=== PATIENT | female | born 1995 | race Caucasian/White ===

== ENCOUNTER 2018-06-13 19:40 | Inpatient (IN) ==
[2018-06-13 20:50] LABS: Basophils # (auto) 0.02 K/uL (0-0.2); Basophils % (auto) 0.3 %; Eosinophils % (auto) 1.5 %; Hematocrit (blood only) 39.2 % (37-47); Hemoglobin 13.1 g/dL (12.0-16.0); Immature Granulocytes # (auto) 0.02 K/uL (0.00-0.02); Immature Granulocytes % (auto) 0.3 %; Lymphocytes # (auto) 2.59 K/uL (1.2-3.4); Lymphocytes % (auto) 39.1 %; Mean Corpuscular Hgb Conc 33.4 g/dL (32-36); Mean Corpuscular Volume 84.8 fL (80-100); Mean Platelet Volume 9.4 fL (7.4-10.4); Monocytes # (auto) 0.54 K/uL (0.11-0.59); Monocytes % (auto) 8.2 %; Neutrophils # (auto) 3.35 K/uL (1.4-6.5); Neutrophils % (auto) 50.6 %; Platelet Count 377 K/uL (130-400); RDW Coefficient of Variation 13.4 % (11.5-14.5); RDW Standard Deviation 41.4 fL (36.4-46.3); Red Blood Count 4.62 M/uL (4.2-5.4); White Blood Count 6.62 K/uL (4.8-10.8)
[2018-06-13 20:54] LABS: Appearance Urine Cloudy (Clear); Bacteria Urine Automated 1+ (Negative); Bilirubin Urine Negative (Negative); Color Urine Yellow; Epithelial Cell Urine Auto >30 /lpf (0-5); Glucose Urine UA Negative (Negative); Ketones Urine Negative (Negative); Leukocyte Esterase Urine Negative (Negative); Nitrite Urine Negative (Negative); Protein Urine Negative (Negative); Specific Gravity Urine 1.015 (1.000-1.030); Urobilinogen Urine Negative (Negative); pH Urine 7.5 (4.5-7.5)
[2018-06-13 21:01] LABS: Pregnancy Test, Serum Negative (Negative)
--- NOTE | 2018-06-13 21:01 | Emergency Department Note ---
Entered by Jennifer Cordero acting as a scribe for Hai Carrillo MD History of Present Illness General Chief complaint: Mental Health Evaluation Stated complaint: SUICIDAL THOUGHTS Time Seen by Provider: 06/13/18 20:05 Source: patient Limitations: no limitations History of Present Illness Provider complaint: thoughts of overdosing Onset (ago): year(s) Location: head Associated symptoms: + other (+not sleeping); no loss of appetite The patient is a 22 year old female who presents to the Emergency Room with complaints of thoughts of overdosing. The patient states that she was going to mix her antidepressants with alcohol. The patient states that her depression has been building up for years but states that it has never been this bad. The patient states that she is eating normally but states that she is not getting a lot of sleep. The patient states that her grades are poor but denies having any relationship issues. The patient states that her basic health is good. The patient denies ever being hospitalized for her depression before. The patient states she has cut herself before and states the last time she cut herself was several months ago. The patient states that she came to the hospital on her own for help. Allergies Allergy/AdvReac Type Severity Reaction Status Date / Time No Known Allergies Allergy Unverified 01/28/16 12:23 Past Med/Surg History Medical History Depression No significant active problems No significant family history No significant past surgical history Social History Feels Safe at Home: Yes Smoking Status: Never smoker Review of Systems See HPI for pertinent positives & negatives. and A total of 10 systems reviewed and were otherwise negative Physical Exam Vital Signs Vital Signs - 24 hr 06/13/18 19:52 Temperature 36.8 C Temperature Source Oral Sepsis Recent Fever Within 48 Hours No Sepsis Action Taken by Nursing No Action Required Pulse Rate 98 H Respiratory Rate 18 Respiratory Effort / Characteristics Non-Labored Spontaneous Respiratory Depth Normal Blood Pressure 151/107 H Blood Pressure Mean 121 Pulse Oximetry 96 Oxygen Delivery Method Room Air GENERAL: Patient is in no acute distress, tearful. HEENT: No acute trauma, normocephalic atraumatic, mucous membranes moist, no nasal congestion, no scleral icterus. NECK: No stridor, no adenopathy, no meningismus, trachea is midline. LUNGS: Clear to auscultation bilaterally, no wheeze, no rhonchi, breath sounds equal. HEART: Without murmurs gallops or rubs, regular rate and rhythm. ABDOMEN: Soft, nontender, bowel sounds positive, no hernias, no peritonitis. EXTREMITIES: No cyanosis or edema, full range of motion of all the joints without pain or difficulty, no signs for acute trauma. NEUROLOGIC: Oriented x 3, no acute motor or sensory deficits, no focal weakness. SKIN: No rash, no jaundice, no diaphoresis. PSYCH: Cooperative, voluntary, admits to suicidal ideation with plan to overdose on pills. Course 2007: Past medical records reviewed. The patient was evaluated in room A6, and a complete history and physical examination were performed. 2210: The patient was referred to [address] [place] [address] at [facility] and is voluntary. Administered Medications Discontinued Medications Acetaminophen (Tylenol) 1,000 mg PO NOW STA Stop: 06/13/18 21:34 Last Admin: 06/13/18 21:39 Dose: 1,000 mg Medical Decision Making Differential Diagnosis The patient is a 22 year old female who presents to the ED with thoughts of overdosing. Differential diagnosis includes medication noncompliance, situational depression, suicidality, thyroid disorder, , electrolyte imbalance, drug and alcohol abuse. Medical Records Attestation: I reviewed the patient's medical records. Home Medications Current Medication List: was personally reviewed by me Laboratory Data Attestation: I reviewed the patient's lab results. Result diagrams: 06/13/18 20:35 06/13/18 20:35 Lab Results 06/13/18 06/13/18 06/13/18 Range/Units 20:15 20:15 20:35 WBC 6.62 (4.8-10.8) K/uL RBC 4.62 (4.2-5.4) M/uL Hgb 13.1 (12.0-16.0) g/dL Hct 39.2 (37-47) % MCV 84.8 (80-100) fL MCH 28.4 (25-34) pg MCHC 33.4 (32-36) g/dL RDW Std Deviation 41.4 (36.4-46.3) fL RDW Coeff of Nikki 13.4 (11.5-14.5) % Plt Count 377 (130-400) K/uL MPV 9.4 (7.4-10.4) fL Immature Gran % (Auto) 0.3 % Neut % (Auto) 50.6 % Lymph % (Auto) 39.1 % [place] % (Auto) 8.2 % Eos % (Auto) 1.5 % Baso % (Auto) 0.3 % Immature Gran # (Auto) 0.02 (0.00-0.02) K/uL Neut # (Auto) 3.35 (1.4-6.5) K/uL Lymph # (Auto) 2.59 (1.2-3.4) K/uL [place] # (Auto) 0.54 (0.11-0.59) K/uL Eos # (Auto) 0.10 (0-0.5) K/uL Baso # (Auto) 0.02 (0-0.2) K/uL Sodium (136-145) mmol/L Potassium (3.5-5.1) mmol/L Chloride (98-107) mmol/L Carbon Dioxide (21-32) mmol/L Anion Gap (3-11) BUN (7-18) mg/dl Creatinine (0.6-1.2) mg/dl Est Cr Clr Drug Dosing ml/min Est GFR ( Amer) Est GFR (Non-Af Amer) BUN/Creatinine Ratio (10-20) Glucose (70-99) mg/dl Calcium (8.5-10.1) mg/dl Total Bilirubin (0.2-1) mg/dl AST (15-37) U/L ALT (12-78) U/L Alkaline Phosphatase (45-117) U/L Total Protein (6.4-8.2) gm/dl Albumin (3.4-5.0) gm/dl Globulin (2.5-4.0) gm/dl Albumin/Globulin Ratio (0.9-2) TSH (0.300-4.500) uIu/ml HCG, Qual (Negative) Urine Color Yellow Urine Appearance Cloudy H (Clear) Urine pH 7.5 (4.5-7.5) Ur Specific [place] 1.015 (1.000-1.030) Urine Protein Negative (Negative) Urine Glucose (UA) Negative (Negative) Urine Ketones Negative (Negative) Urine Blood 2+ H (Negative) Urine Nitrite Negative (Negative) Urine Bilirubin Negative (Negative) Urine Urobilinogen Negative (Negative) Ur Leukocyte Esterase Negative (Negative) Urine WBC (Auto) 5-10 H (0-5) /hpf Urine RBC (Auto) 0-4 (0-4) /hpf U Hyaline Cast (Auto) 1-5 (0-5) /lpf U Epithel Cells (Auto) >30 H (0-5) /lpf Urine Bacteria (Auto) 1+ H (Negative) Urine Yeast Not Reportable Salicylates (2.8-20) mg/dl Urine Opiates Screen Neg (Neg) Ur Methadone, Qual Neg (Neg) Acetaminophen (10-30) ug/ml Urine Barbiturates Neg (Neg) Ur Phencyclidine (PCP) Neg (Neg) U Amphetamin/Meth Scrn Neg (Neg) MDMA (Ecstasy) Screen Neg (Neg) U Benzodiazepines Scrn Neg (Neg) Ur Cocaine Metabolite Neg (Neg) U Marijuana (THC) Screen Neg (Neg) Ethyl Alcohol mg/dL (0-3) mg/dl 06/13/18 06/13/18 06/13/18 Range/Units 20:35 20:35 20:35 WBC (4.8-10.8) K/uL RBC (4.2-5.4) M/uL Hgb (12.0-16.0) g/dL Hct (37-47) % MCV (80-100) fL MCH (25-34) pg MCHC (32-36) g/dL RDW Std Deviation (36.4-46.3) fL RDW Coeff of Nikki (11.5-14.5) % Plt Count (130-400) K/uL MPV (7.4-10.4) fL Immature Gran % (Auto) % Neut % (Auto) % Lymph % (Auto) % [place] % (Auto) % Eos % (Auto) % Baso % (Auto) % Immature Gran # (Auto) (0.00-0.02) K/uL Neut # (Auto) (1.4-6.5) K/uL Lymph # (Auto) (1.2-3.4) K/uL [place] # (Auto) (0.11-0.59) K/uL Eos # (Auto) (0-0.5) K/uL Baso # (Auto) (0-0.2) K/uL Sodium 139 (136-145) mmol/L Potassium 3.3 L (3.5-5.1) mmol/L Chloride 107 (98-107) mmol/L Carbon Dioxide 24 (21-32) mmol/L Anion Gap 8.0 (3-11) BUN 8 (7-18) mg/dl Creatinine 0.83 (0.6-1.2) mg/dl Est Cr Clr Drug Dosing 101.2 ml/min Est GFR ( Amer) 117.7 Est GFR (Non-Af Amer) 101.5 BUN/Creatinine Ratio 9.1 L (10-20) Glucose 107 H (70-99) mg/dl Calcium 8.4 L (8.5-10.1) mg/dl Total Bilirubin 0.1 L (0.2-1) mg/dl AST 19 (15-37) U/L ALT 22 (12-78) U/L Alkaline Phosphatase 54 (45-117) U/L Total Protein 7.4 (6.4-8.2) gm/dl Albumin 3.7 (3.4-5.0) gm/dl Globulin 3.7 (2.5-4.0) gm/dl Albumin/Globulin Ratio 1.0 (0.9-2) TSH 0.690 (0.300-4.500) uIu/ml HCG, Qual (Negative) Urine Color Urine Appearance (Clear) Urine pH (4.5-7.5) Ur Specific [place] (1.000-1.030) Urine Protein (Negative) Urine Glucose (UA) (Negative) Urine Ketones (Negative) Urine Blood (Negative) Urine Nitrite (Negative) Urine Bilirubin (Negative) Urine Urobilinogen (Negative) Ur Leukocyte Esterase (Negative) Urine WBC (Auto) (0-5) /hpf Urine RBC (Auto) (0-4) /hpf U Hyaline Cast (Auto) (0-5) /lpf U Epithel Cells (Auto) (0-5) /lpf Urine Bacteria (Auto) (Negative) Urine Yeast Salicylates < 1.7 L (2.8-20) mg/dl Urine Opiates Screen (Neg) Ur Methadone, Qual (Neg) Acetaminophen < 2 L (10-30) ug/ml Urine Barbiturates (Neg) Ur Phencyclidine (PCP) (Neg) U Amphetamin/Meth Scrn (Neg) MDMA (Ecstasy) Screen (Neg) U Benzodiazepines Scrn (Neg) Ur Cocaine Metabolite (Neg) U Marijuana (THC) Screen (Neg) Ethyl Alcohol mg/dL < 3.0 (0-3) mg/dl 06/13/18 Range/Units 20:35 WBC (4.8-10.8) K/uL RBC (4.2-5.4) M/uL Hgb (12.0-16.0) g/dL Hct (37-47) % MCV (80-100) fL MCH (25-34) pg MCHC (32-36) g/dL RDW Std Deviation (36.4-46.3) fL RDW Coeff of Nikki (11.5-14.5) % Plt Count (130-400) K/uL MPV (7.4-10.4) fL Immature Gran % (Auto) % Neut % (Auto) % Lymph % (Auto) % [place] % (Auto) % Eos % (Auto) % Baso % (Auto) % Immature Gran # (Auto) (0.00-0.02) K/uL Neut # (Auto) (1.4-6.5) K/uL Lymph # (Auto) (1.2-3.4) K/uL [place] # (Auto) (0.11-0.59) K/uL Eos # (Auto) (0-0.5) K/uL Baso # (Auto) (0-0.2) K/uL Sodium (136-145) mmol/L Potassium (3.5-5.1) mmol/L Chloride (98-107) mmol/L Carbon Dioxide (21-32) mmol/L Anion Gap (3-11) BUN (7-18) mg/dl Creatinine (0.6-1.2) mg/dl Est Cr Clr Drug Dosing ml/min Est GFR ( Amer) Est GFR (Non-Af Amer) BUN/Creatinine Ratio (10-20) Glucose (70-99) mg/dl Calcium (8.5-10.1) mg/dl Total Bilirubin (0.2-1) mg/dl AST (15-37) U/L ALT (12-78) U/L Alkaline Phosphatase (45-117) U/L Total Protein (6.4-8.2) gm/dl Albumin (3.4-5.0) gm/dl Globulin (2.5-4.0) gm/dl Albumin/Globulin Ratio (0.9-2) TSH (0.300-4.500) uIu/ml HCG, Qual Negative (Negative) Urine Color Urine Appearance (Clear) Urine pH (4.5-7.5) Ur Specific [place] (1.000-1.030) Urine Protein (Negative) Urine Glucose (UA) (Negative) Urine Ketones (Negative) Urine Blood (Negative) Urine Nitrite (Negative) Urine Bilirubin (Negative) Urine Urobilinogen (Negative) Ur Leukocyte Esterase (Negative) Urine WBC (Auto) (0-5) /hpf Urine RBC (Auto) (0-4) /hpf U Hyaline Cast (Auto) (0-5) /lpf U Epithel Cells (Auto) (0-5) /lpf Urine Bacteria (Auto) (Negative) Urine Yeast Salicylates (2.8-20) mg/dl Urine Opiates Screen (Neg) Ur Methadone, Qual (Neg) Acetaminophen (10-30) ug/ml Urine Barbiturates (Neg) Ur Phencyclidine (PCP) (Neg) U Amphetamin/Meth Scrn (Neg) MDMA (Ecstasy) Screen (Neg) U Benzodiazepines Scrn (Neg) Ur Cocaine Metabolite (Neg) U Marijuana (THC) Screen (Neg) Ethyl Alcohol mg/dL (0-3) mg/dl Blood Pressure Blood Pressure Findings: Elevated blood pressure Blood Pressure Disposition: Referred to patients primary care provider MDM Narrative There is no leukocytosis or worrisome anemia. No significant electrolyte abnormality, kidney failure or hepatitis. The patient appears to be in a euthyroid state. testing is negative. Urinalysis shows contamination , no obvious infection. Aspirin, Tylenol and alcohol levels were undetectable. Urine tox was negative. The patient presents with suicidal ideation. She has a plan to overdose on pills and alcohol. She is currently voluntary. Patient was felt medically clear. She was seen by psychiatry case management. A referral has been placed here at our hospital. The patient would be a voluntary admission to the psychiatric floor. The patient did receive a gram of oral Tylenol for pain during her ED stay. She has been very cooperative. She is currently resting comfortably. Impression & Plan Suicidal ideation Discharge Plan Visit Data Chief Complaint: Mental Health Evaluation Stated Complaint: SUICIDAL THOUGHTS ED Provider: Hai Carrillo Discharge Problem: Suicidal ideation Patient Disposition: Still a Patient Condition: Good Forms Stand Alone Forms: My [facility] Referrals Referrals: PCP,NO [Primary Care Provider] - The scribe's documentation has been prepared under my direction and personally reviewed by me in its entirety. I confirm that the note above accurately reflects all work, treatment, procedures, and medical decision making performed by me.
[2018-06-13 21:22] LABS: Albumin Level 3.7 gm/dl (3.4-5.0); BUN Creatinine Ratio 9.1 (10-20); Calcium 8.4 mg/dl (8.5-10.1); Creatinine Clr Calc Pharmacy 101.2 ml/min; Est GFR (African American) 117.7; Est GFR (Non-African American) 101.5; Potassium 3.3 mmol/L (3.5-5.1)
[2018-06-13 21:24] LABS: Amphetamines+Metham, Urine Neg (Neg); Barbiturates, Urine Neg (Neg); Benzodiazepine, Urine Neg (Neg); Cocaine, Urine Neg (Neg); MDMA (Ecstacy), Urine Neg (Neg); Methadone, Urine Neg (Neg); Opiate, Urine Neg (Neg); Phencyclidine, Urine Neg (Neg)
[2018-06-13 21:26] LABS: Acetaminophen < 2 ug/ml (10-30); Salicylate < 1.7 mg/dl (2.8-20)
[2018-06-13 21:32] LABS: Bilirubin,Total 0.1 mg/dl (0.2-1); Globulin 3.7 gm/dl (2.5-4.0); Total Protein 7.4 gm/dl (6.4-8.2)
[2018-06-13] MEDS ORDERED: ACETAMINOPHEN 500 MG TAB PO STA (21:33)
[2018-06-14] MEDS ORDERED: MAGNESIUM HYDROXIDE SUSP 30 ML UDC PO PRN (02:54)
[2018-06-14] MEDS ORDERED: ACETAMINOPHEN 325 MG TAB PO PRN (02:54)
[2018-06-14] MEDS ORDERED: ALUMINUM/MAGNESIUM SUSP 30 ML UDC PO PRN (02:54)
[2018-06-14] MEDS ORDERED: SODIUM CHLORIDE 0.65% NA SOLN 45 ML (OCEAN) PRN (02:54)
[2018-06-14] MEDS ORDERED: BISMUTH SUBSALICYLATE PER ML OMNICELL CHARGE PO PRN (02:54)
--- NOTE | 2018-06-14 11:34 | History & Physical ---
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 She denies acute stressors saying that her depression has been chronic since sixth grade and getting worse of late. She has been on multiple medications in the past but does not remember dosage or duration of the trials and admits that she does not take her medications regularly. At this point I would like to see that we give Lexapro a good shot, will increase the dose to 15 mg, change it to morning where she thinks that she will have a better chance of taking it more regularly. Her UA is positive for bacteria with culture pending and will address this when preliminary is available. She has not been invested in outpatient therapy and we will explore the barriers to this as she is a bright young woman and would benefit from talk therapy. On first glance she is minimizing any acute stressors but I suspect that there are family issues at play that are contributing to her long-standing depressed mood. We will obtain records from her current PCP as to her medication trials, refer for outpatient treatment locally as she believes she wants to continue in school. At this time however the patient requires inpatient mental health treatment due to the severity of her condition and the risk for self-harm if discharged. (1) Major depressive disorder, recurrent severe without psychotic features: 06/14 - Increase Lexapro to 15 mg and move to AM - Obtain OP records from Dr. Hughes as to past med trials - Refer for OP therapy and medication management - Q 15 min checks for safety - Encourage participation in group and individual counseling - Assist the patient to explore healthy coping strategies - Explore barriers to her commitment to therapy - Family meeting if indicated - Safety planning Present on Admission?: Yes (2) Asymptomatic bacteriuria: 06/14 - UA + bacteria, culture pending Inventory Assets Strengths: Intelligence, willingness to engage in treatment Needs: Healthy coping strategies Risk Factors Assessment Male: No : Yes Do You Have Access To A Gun?: No Health Problems: No Mental Health Diagnoses: Yes Substance Use Disorders: No Previous Attempt: No Family History of Suicide: No Previous Psychiatric Hospitalization: No Hopelessness: No Smoker: No Protective Factors Assessment : No Responsible for Young Children: No Employed: Yes Stable Relationships: Yes Supportive Family: Yes Psychiatric History Identifying Data ALTA BARRIOS is a 22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 She is admitted voluntarily. Information is gathered from the patient and considered to be reliable. 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, who brought herself to the emergency department last evening reporting severe depression and thoughts to end her life. She reports that she has felt depressed for "a very long time" and remembers being depressed as early as sixth grade. She indicates that she did not get treatment until about a year and a half ago when she went to [facility] for some therapy. She was there only a brief while before she transferred to a private provider in [facility] but did not feel that was working and so only went to 2 sessions. She then went home to see her PCP, Dr. Nancy Hughes, who has been prescribing antidepressants. She believes that she has had trials of Paxil, Zoloft, Prozac and is currently taking Lexapro 10 mg. She admits that she has trouble taking it and misses it at least several times every week. She has been managing all right in school but her depression has been getting worse recently. Yesterday, she was so depressed that she thought about overdosing on her medications in combination with alcohol. She says "I started to" but then realized that there were " people who rely on me" and that she would hurt if she were to kill herself. She then called in [facility] to have herself brought to the emergency department. The patient reports that she remains depressed and admits to the suicidal thoughts. She says that she has had suicidal thoughts off and on since high school. She reports that her sleep is generally good getting about 6 hours of sleep per night. Her appetite has been undisturbed and weight has been stable. Her energy was okay until recently when she feels more tired but has been able to get to her classes. She reports poor focus and concentration. Anxiety is chronic and has panic attacks when she feels like things are out of her control. She admits to a history of restricting behaviors in order to lose weight but has not engaged in any restricting since last year. She denies ever having purged. She denies symptoms of OCD. She denies any symptoms that would be congruent with a bipolar disorder. She has engaged in self-injurious behaviors, specifically scratching with her nails on her wrists and on her sides. Past Psychiatric History Previous Psych History: Has been to see 2 therapists in the past, one at [facility] and one in the community but did not continue Current Psychiatric Diagnosis: Major Depressive Disorder Outpatient Services: Medications prescribed by PCP Previous Psych Admissions: Denies Do You Have Access To A Gun?: No History of Previous Suicide Attempt: No Describe Attempts in the Past: Denies Past Medication Trials: Paxil Zoloft Prozac Additional Notes: Does not remember dosages or duration of trials Past Head Trauma/Neuro History History of Concussion/Seizure: No Allergies Allergy/AdvReac Type Severity Reaction Status Date / Time No Known Allergies Allergy Verified 06/13/18 22:57 Home Medications Home Medications Medication Instructions Recorded Confirmed Type escitalopram oxalate [Lexapro] 10 mg PO DAILY 06/13/18 06/13/18 History norgestimate-ethinyl estradiol 1 tab PO DAILY 06/13/18 06/13/18 History [[id number]] Family History Family History of: Alcoholism/Drug Abuse (Brother) Alcohol History Hx of Alcohol Use Over the Past 12 Months: Yes ("Socially once per week") AUDIT Total Score: 3 Smoking Use Have You Smoked or Used Tobacco Products in the Last 30 Days: No Smoking Status: Never smoker Substance History Hx of Prescription Med Misuse Over the Past 12 Months: No Hx of Over the Counter Med Misuse Over the Past 12 Months: No Hx of Inhalent Misuse Over the Past 12 Months: No Hx of Organic Substance Use Over the Past 12 Months: No Hx of Illegal Substances/Street Drug Use Over Past 12 Months: No Problems as a Result of Past Substance Use: None Identified Personal History Living Arrangements: APartment (With 4 roommates) Born In: [place] Childhood: Raised by both parents. She does not have a good relationship with her father but admits that her mother tries to be supportive. Father works for [employer], mother just recently employed at a [employer] agency. She has 1 brother. 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[employer]) Marital Status: Single Number Of Children: None Beliefs That Will Affect Care: None Hx Legal Problems: No Hx Traumatic Life Events: Yes Patient History Medical History Depression No significant active problems No significant family history No significant past surgical history Social History Feels Safe at Home: Yes Smoking Status: Never smoker Beliefs That Will Affect Care: None Preferred Language: Malawian Communication Ability: Effective Supervisor Intelligence Analyst Required: No Review of Systems All systems reviewed & are unremarkable except as noted in HPI & below Physical Exam Mental Examination Exam performed by Dr. Carrillo in the emergency department has been reviewed and accepted as medical clearance for our unit Psychiatric Orientation: alert, oriented x 3 and cooperative Apperance: appropriately dressed and appropriately groomed Eye Contact: good eye contact Motor Behavior: steady gait and station and no abnormal motor movements Speech: normal rate/rhythm/volume of speech Affect: + depressed affect and + flat affect Mood: + depressed mood Thought Process: goal directed thought process Thought Content: reality based without delusions Suicidal Thoughts: + reports suicidal thoughts and + reports suicidal plan ( Overdose on medications and alcohol) Homicidal Thoughts: denies homicidal thoughts Hallucinations: no auditory hallucinations and no visual hallucinations Cognition: recent memory grossly intact, remote memory grossly intact, attention grossly intact and language grossly intact Estimated Intelligence: average estimated intelligence Insight: + limited insight Judgement: + limited judgement Vital Signs (Past 24 Hours) Last Vital Signs Temp 36.6 C 06/14/18 06:30 Pulse 80 06/14/18 06:30 Resp 16 06/14/18 06:30 BP 124/86 06/14/18 06:30 Pulse Ox 100 06/14/18 03:15 Results & Data Laboratory Results Laboratory Results - last 24 hr 06/13/18 06/13/18 06/13/18 20:15 20:15 20:35 WBC 6.62 RBC 4.62 Hgb 13.1 Hct 39.2 MCV 84.8 MCH 28.4 MCHC 33.4 RDW Std Deviation 41.4 RDW Coeff of Nikki 13.4 Plt Count 377 MPV 9.4 Immature Gran % (Auto) 0.3 Neut % (Auto) 50.6 Lymph % (Auto) 39.1 [place] % (Auto) 8.2 Eos % (Auto) 1.5 Baso % (Auto) 0.3 Immature Gran # (Auto) 0.02 Neut # (Auto) 3.35 Lymph # (Auto) 2.59 [place] # (Auto) 0.54 Eos # (Auto) 0.10 Baso # (Auto) 0.02 Sodium Potassium Chloride Carbon Dioxide Anion Gap BUN Creatinine Est Cr Clr Drug Dosing Est GFR ( Amer) Est GFR (Non-Af Amer) BUN/Creatinine Ratio Glucose Calcium Total Bilirubin AST ALT Alkaline Phosphatase Total Protein Albumin Globulin Albumin/Globulin Ratio TSH HCG, Qual Urine Color Yellow Urine Appearance Cloudy H Urine pH 7.5 Ur Specific [place] 1.015 Urine Protein Negative Urine Glucose (UA) Negative Urine Ketones Negative Urine Blood 2+ H Urine Nitrite Negative Urine Bilirubin Negative Urine Urobilinogen Negative Ur Leukocyte Esterase Negative Urine WBC (Auto) 5-10 H Urine RBC (Auto) 0-4 U Hyaline Cast (Auto) 1-5 U Epithel Cells (Auto) >30 H Urine Bacteria (Auto) 1+ H Urine Yeast Not Reportable Salicylates Urine Opiates Screen Neg Ur Methadone, Qual Neg Acetaminophen Urine Barbiturates Neg Ur Phencyclidine (PCP) Neg U Amphetamin/Meth Scrn Neg MDMA (Ecstasy) Screen Neg U Benzodiazepines Scrn Neg Ur Cocaine Metabolite Neg U Marijuana (THC) Screen Neg Ethyl Alcohol mg/dL 06/13/18 06/13/18 06/13/18 20:35 20:35 20:35 WBC RBC Hgb Hct MCV MCH MCHC RDW Std Deviation RDW Coeff of Nikki Plt Count MPV Immature Gran % (Auto) Neut % (Auto) Lymph % (Auto) [place] % (Auto) Eos % (Auto) Baso % (Auto) Immature Gran # (Auto) Neut # (Auto) Lymph # (Auto) [place] # (Auto) Eos # (Auto) Baso # (Auto) Sodium 139 Potassium 3.3 L Chloride 107 Carbon Dioxide 24 Anion Gap 8.0 BUN 8 Creatinine 0.83 Est Cr Clr Drug Dosing 101.2 Est GFR ( Amer) 117.7 Est GFR (Non-Af Amer) 101.5 BUN/Creatinine Ratio 9.1 L Glucose 107 H Calcium 8.4 L Total Bilirubin 0.1 L AST 19 ALT 22 Alkaline Phosphatase 54 Total Protein 7.4 Albumin 3.7 Globulin 3.7 Albumin/Globulin Ratio 1.0 TSH 0.690 HCG, Qual Urine Color Urine Appearance Urine pH Ur Specific [place] Urine Protein Urine Glucose (UA) Urine Ketones Urine Blood Urine Nitrite Urine Bilirubin Urine Urobilinogen Ur Leukocyte Esterase Urine WBC (Auto) Urine RBC (Auto) U Hyaline Cast (Auto) U Epithel Cells (Auto) Urine Bacteria (Auto) Urine Yeast Salicylates < 1.7 L Urine Opiates Screen Ur Methadone, Qual Acetaminophen < 2 L Urine Barbiturates Ur Phencyclidine (PCP) U Amphetamin/Meth Scrn MDMA (Ecstasy) Screen U Benzodiazepines Scrn Ur Cocaine Metabolite U Marijuana (THC) Screen Ethyl Alcohol mg/dL < 3.0 06/13/18 20:35 WBC RBC Hgb Hct MCV MCH MCHC RDW Std Deviation RDW Coeff of Nikki Plt Count MPV Immature Gran % (Auto) Neut % (Auto) Lymph % (Auto) [place] % (Auto) Eos % (Auto) Baso % (Auto) Immature Gran # (Auto) Neut # (Auto) Lymph # (Auto) [place] # (Auto) Eos # (Auto) Baso # (Auto) Sodium Potassium Chloride Carbon Dioxide Anion Gap BUN Creatinine Est Cr Clr Drug Dosing Est GFR ( Amer) Est GFR (Non-Af Amer) BUN/Creatinine Ratio Glucose Calcium Total Bilirubin AST ALT Alkaline Phosphatase Total Protein Albumin Globulin Albumin/Globulin Ratio TSH HCG, Qual Negative Urine Color Urine Appearance Urine pH Ur Specific [place] Urine Protein Urine Glucose (UA) Urine Ketones Urine Blood Urine Nitrite Urine Bilirubin Urine Urobilinogen Ur Leukocyte Esterase Urine WBC (Auto) Urine RBC (Auto) U Hyaline Cast (Auto) U Epithel Cells (Auto) Urine Bacteria (Auto) Urine Yeast Salicylates Urine Opiates Screen Ur Methadone, Qual Acetaminophen Urine Barbiturates Ur Phencyclidine (PCP) U Amphetamin/Meth Scrn MDMA (Ecstasy) Screen U Benzodiazepines Scrn Ur Cocaine Metabolite U Marijuana (THC) Screen Ethyl Alcohol mg/dL Current Inpatient Medications Current Inpatient Medications: Current Inpatient Medications Acetaminophen (Tylenol) 650 mg PO Q4H PRN PRN Reason: Headache or Minor Fever Stop: 07/14/18 02:53 Al Hydrox/Mg Hydrox/Simethicone (Maalox) 30 ml PO Q4H PRN PRN Reason: GI Upset Stop: 07/14/18 02:53 Bismuth Subsalicylate (Kaopectate) 15 ml PO PRN PRN PRN Reason: Loose Stool Stop: 07/14/18 02:53 Escitalopram Oxalate (Lexapro) 15 mg PO QAM MAXINE Stop: 07/14/18 11:14 Hydroxyzine HCl (Vistaril) 25 mg PO Q4H PRN PRN Reason: Anxiety Stop: 07/14/18 02:53 Hydroxyzine HCl (Vistaril) 50 mg PO HSZ PRN PRN Reason: Insomnia Stop: 07/14/18 02:53 Magnesium Hydroxide (Milk Of Magnesia) 30 ml PO DAILY PRN PRN Reason: Heartburn Stop: 07/14/18 02:53 Control: Non- Formulary Patient's Own Med 1 ea PO DAILY MAXINE Stop: 07/14/18 08:59 Sodium Chloride ([place] Nasal) 1 - 2 sprays NA PRN PRN PRN Reason: Nasal Dryness/Congestion Stop: 07/14/18 02:53 CPT Code CPT Code Initial Hospital Care: 32022
[2018-06-14] MEDS: BIRTH CONTROL PO SCH (12:23)
[2018-06-14] MEDS: ESCITALOPRAM OXALATE 10 MG TAB PO SCH (13:52)
[2018-06-15] MEDS: ESCITALOPRAM OXALATE 10 MG TAB PO SCH (09:03)
[2018-06-15] MEDS: BIRTH CONTROL PO SCH (09:06)
--- NOTE | 2018-06-15 10:57 | Psychiatric Progress Note ---
Date of Service June 15, 2018 Impression / Recommendations Impression Pt denies SI in the last day, but feels she is not able to address stressors while on the unit. She denies any specific stressor correlated to her SI. Pt is guarded when discussing the content and extent of her SI, only willing to voice that she had an act of furtherance "in the last month." Highly likely she is minimizing symptoms, and is hesitant to bring family/friends in for support. She is willing to consider therapy referral if it fits into her schedule. Otherwise planning to handle stressors upon discharge, but encouraged to address and process these during her admission. She continues to require inpatient mental health treatment due to the severity of her condition and the risk for self-harm if discharged prematurely. (1) Major depressive disorder, recurrent severe without psychotic features: 06/14 - Increase Lexapro to 15 mg and move to AM - Obtain OP records from Dr. Hughes as to past med trials - Refer for OP therapy and medication management - Q 15 min checks for safety - Encourage participation in group and individual counseling - Assist the patient to explore healthy coping strategies - Explore barriers to her commitment to therapy - Family meeting if indicated - Safety planning 06/15 - Continue Lexapro 15mg daily - Willing to consider therapy referral - Encourage completion of safety plan, especially if requesting consideration for sooner discharge (2) Asymptomatic bacteriuria: 06/14 - UA + bacteria, culture pending 06/15 - Initial culture, pinpoint growth, reincubating Inventory Assets Strengths: Intelligence, willingness to engage in treatment Needs: Healthy coping strategies Risk Factors Assessment Male: No : Yes Do You Have Access To A Gun?: No Health Problems: No Mental Health Diagnoses: Yes Substance Use Disorders: No Previous Attempt: No Family History of Suicide: No Previous Psychiatric Hospitalization: No Hopelessness: No Smoker: No Protective Factors Assessment : No Responsible for Young Children: No Employed: Yes Stable Relationships: Yes Supportive Family: Yes Interval History Identifying Information 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 She is admitted voluntarily. Information is gathered from the patient and considered to be reliable. Chief Complaint "I mean it's fine, I just don't know how helpful it will be to be here, especially for a long time". Review of Systems Notes Constitutional: denied Cardiovascular: denied Respiratory: denied Gastrointestinal: denied Neurological: denied Psychiatric: denies symptoms other than stated above Total of at least 10 systems reviewed, pertinent positives as above and in HPI. Sleep Information Total Hours of Sleep: 7 Meal Information Percent Meal Consumed - Breakfast: 75 Percent Meal Consumed - Lunch: 100 Percent Meal Consumed - Dinner: 100 Subjective Subjective Patient was seen & assessed and interval progress reviewed with Treatment Team. Staff report there are conflicting stories as to whether the patient had possibly taken an overdose, as opposed to initial reports of simply having a plan. Pt was seen today to assess progress since admission. Pt states she is doing well, but is concerned about how long she will be required to stay, as "I think being here for a while may be more harmful than helpful." She states, "a lot of these concerns are things that I can't address while I'm here." She admits to willingness to consider therapy, if it is able to fit into her schedule. Discussed status of SI, and patient denies any in the last day. She denies any obvious trigger for her SI, and states it is often intermittent. Pt does reluctantly admit that "in the last month" she has "started taking pills" in an attempt to overdose. But stopped herself because "there are a lot of people who rely on me." She denies any side effects from increase of escitalopram dosing. Pt denies current SI and onset of new concerns. Physical Exam Psychiatric Orientation: alert, oriented x 3 and + guarded (somewhat) Apperance: appropriately dressed and appropriately groomed Eye Contact: good eye contact Motor Behavior: steady gait and station and no abnormal motor movements Speech: normal rate/rhythm/volume of speech Affect: + blunted affect (mildly) "it depends on the day, there's just so much going on at times" Thought Process: goal directed thought process, linear/logical thought process and clear/coherent thought process Thought Content: reality based without delusions Suicidal Thoughts: denies suicidal thoughts (since admission); + reports suicidal plan (plan to overdose, with act of furtherance in the last month) Homicidal Thoughts: denies homicidal thoughts Hallucinations: no auditory hallucinations and no visual hallucinations Cognition: recent memory grossly intact, remote memory grossly intact, attention grossly intact and language grossly intact Estimated Intelligence: average estimated intelligence Insight: + fair insight Judgement: + fair judgement Vital Signs (Past 24 Hours) Last Vital Signs Temp 36.6 C 06/15/18 07:08 Pulse 88 06/15/18 07:08 Resp 16 06/15/18 07:08 BP 110/73 06/15/18 07:08 Pulse Ox 100 06/14/18 03:15 Results & Data Current Inpatient Medications Current Inpatient Medications: Current Inpatient Medications Acetaminophen (Tylenol) 650 mg PO Q4H PRN PRN Reason: Headache or Minor Fever Stop: 07/14/18 02:53 Al Hydrox/Mg Hydrox/Simethicone (Maalox) 30 ml PO Q4H PRN PRN Reason: GI Upset Stop: 07/14/18 02:53 Bismuth Subsalicylate (Kaopectate) 15 ml PO PRN PRN PRN Reason: Loose Stool Stop: 07/14/18 02:53 Escitalopram Oxalate (Lexapro) 15 mg PO QAM MAXINE Stop: 07/14/18 11:14 Last Admin: 06/15/18 09:03 Dose: 15 mg Hydroxyzine HCl (Vistaril) 25 mg PO Q4H PRN PRN Reason: Anxiety Stop: 07/14/18 02:53 Hydroxyzine HCl (Vistaril) 50 mg PO HSZ PRN PRN Reason: Insomnia Stop: 07/14/18 02:53 Magnesium Hydroxide (Milk Of Magnesia) 30 ml PO DAILY PRN PRN Reason: Heartburn Stop: 07/14/18 02:53 Control: Non- Formulary Patient's Own Med 1 ea PO DAILY MAXINE Stop: 07/14/18 08:59 Last Admin: 06/15/18 09:06 Dose: 1 tabs Sodium Chloride ([place] Nasal) 1 - 2 sprays NA PRN PRN PRN Reason: Nasal Dryness/Congestion Stop: 07/14/18 02:53 Post Discharge Appointments Primary Care Physician Name Of Family Doctor: Dr Nancy Hughes - [facility] [place] Therapist Name of Therapist: Ishan [employer] Supervisor Name of [employer] Supervisor: Lilian Rao Date of Appointment with [employer] Supervisor: 06/18/18 Time of Appointment with [employer] Supervisor: 2pm CPT Code CPT Code 53939
[2018-06-16] MEDS: BIRTH CONTROL PO SCH (09:01)
[2018-06-16] MEDS: ESCITALOPRAM OXALATE 10 MG TAB PO SCH (09:01)
--- NOTE | 2018-06-16 14:29 | Psychiatric Progress Note ---
Date of Service June 16, 2018 Impression / Recommendations Impression Pt has been rather guarded in discussing SI up to this point and has been resisting support system involvement. Although she denies SI current, it's still likely she is minimizing symptoms and discussed additional monitoring. (1) Major depressive disorder, recurrent severe without psychotic features: 06/14 - Increase Lexapro to 15 mg and move to AM - Obtain OP records from Dr. Hughes as to past med trials - Refer for OP therapy and medication management - Q 15 min checks for safety - Encourage participation in group and individual counseling - Assist the patient to explore healthy coping strategies - Explore barriers to her commitment to therapy - Family meeting if indicated - Safety planning 06/15 - Continue Lexapro 15mg daily - Willing to consider therapy referral - Encourage completion of safety plan, especially if requesting consideration for sooner discharge Inventory Assets Strengths: Intelligence, willingness to engage in treatment Needs: Healthy coping strategies Risk Factors Assessment Male: No : Yes Do You Have Access To A Gun?: No Health Problems: No Mental Health Diagnoses: Yes Substance Use Disorders: No Previous Attempt: No Family History of Suicide: No Previous Psychiatric Hospitalization: No Hopelessness: No Smoker: No Protective Factors Assessment : No Responsible for Young Children: No Employed: Yes Stable Relationships: Yes Supportive Family: Yes Interval History Identifying Information ALTA 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 She is admitted voluntarily. Chief Complaint "so I can't go today?". Review of Systems Sleep Information Total Hours of Sleep: 6 Sleep Comments: pt given vistaril per rn. pt on q-15 minute checks Meal Information Percent Meal Consumed - Breakfast: 100 Percent Meal Consumed - Lunch: 100 Percent Meal Consumed - Dinner: 90 Subjective Subjective Patient was seen & assessed and interval progress reviewed with Nursing and social work. She did notify her parents that she is hospitalized but remains resistant to having them involved in any session. 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 She would like to take Monday off from class. She has tolerated increase in Lexapro and feels her mood is improving. She reports only having 7 tabs left at home. She has a local therapist but wants to continue with her PCP for medication management due to costs/time constraints. Physical Exam Psychiatric A+Ox3, euthymic affect a bit tired as prn Vistaril last hs Apperance: appropriately dressed and appropriately groomed Eye Contact: + fair eye contact Motor Behavior: no abnormal motor movements Speech: normal rate/rhythm/volume of speech Affect: + constricted affect Mood: + depressed mood Thought Process: goal directed thought process Thought Content: reality based without delusions Suicidal Thoughts: denies suicidal thoughts Homicidal Thoughts: denies homicidal thoughts Hallucinations: no auditory hallucinations and no visual hallucinations Cognition: recent memory grossly intact, attention grossly intact and language grossly intact Estimated Intelligence: consistent with education level Insight: + fair insight Judgement: + fair judgement Vital Signs (Past 24 Hours) Last Vital Signs Temp 36.7 C 06/16/18 06:55 Pulse 83 06/16/18 06:56 Resp 16 06/16/18 06:55 BP 113/76 06/16/18 06:56 Pulse Ox 100 06/14/18 03:15 Results & Data Current Inpatient Medications Current Inpatient Medications: Current Inpatient Medications Acetaminophen (Tylenol) 650 mg PO Q4H PRN PRN Reason: Headache or Minor Fever Stop: 07/14/18 02:53 Last Admin: 06/15/18 17:14 Dose: 650 mg Al Hydrox/Mg Hydrox/Simethicone (Maalox) 30 ml PO Q4H PRN PRN Reason: GI Upset Stop: 07/14/18 02:53 Bismuth Subsalicylate (Kaopectate) 15 ml PO PRN PRN PRN Reason: Loose Stool Stop: 07/14/18 02:53 Escitalopram Oxalate (Lexapro) 15 mg PO QAM MAXINE Stop: 07/14/18 11:14 Last Admin: 06/16/18 09:01 Dose: 15 mg Hydroxyzine HCl (Vistaril) 25 mg PO Q4H PRN PRN Reason: Anxiety Stop: 07/14/18 02:53 Hydroxyzine HCl (Vistaril) 50 mg PO HSZ PRN PRN Reason: Insomnia Stop: 07/14/18 02:53 Last Admin: 06/15/18 22:31 Dose: 50 mg Magnesium Hydroxide (Milk Of Magnesia) 30 ml PO DAILY PRN PRN Reason: Heartburn Stop: 07/14/18 02:53 Control: Non- Formulary Patient's Own Med 1 ea PO DAILY MAXINE Stop: 07/14/18 08:59 Last Admin: 06/16/18 09:01 Dose: 1 tabs Sodium Chloride (Pecos Nasal) 1 - 2 sprays NA PRN PRN PRN Reason: Nasal Dryness/Congestion Stop: 07/14/18 02:53 Post Discharge Appointments Primary Care Physician Name Of Family Doctor: Dr Nancy Hughes - [facility] Time of Appointment with PCP: follow up as needed Provider Appointment Comment: [address], [place] [address] Therapist Name of Therapist: [facility] - Bethanie Aguirre Therapist's Date of Therapist Appointment: 06/20/18 Time of Therapist Appointment: 3pm - come 15min early with insurance card Therapy Appointment Comment: [address] [facility] [address] Him Coder Name of Him Coder: Lilian Rao Phone Number for Him Coder: [phone] Date of Appointment with Him Coder: 06/18/18 Time of Appointment with Him Coder: 2pm Case Management Appointment Comment[facility] [address] [place] [address] Contact Information Discharge Discharge Address: [facility] [address] [address], [place] [address] CPT Code CPT Code 14694
[2018-06-17] MEDS: BIRTH CONTROL PO SCH (08:55)
[2018-06-17] MEDS: ESCITALOPRAM OXALATE 10 MG TAB PO SCH (08:55)
--- NOTE | 2018-06-17 09:49 | Discharge Summary ---
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 She reports that she has felt depressed for "a very long time" and remembers being depressed as early as sixth grade. She indicates that she did not get treatment until about a year and a half ago when she went to [facility] for some therapy. She was there only a brief while before she transferred to a private provider in [facility] but did not feel that was working and so only went to 2 sessions. She then went home to see her PCP, Dr. Nancy Hughes, who has been prescribing antidepressants. She believes that she has had trials of Paxil, Zoloft, Prozac and is currently taking Lexapro 10 mg. She admits that she has trouble taking it and misses it at least several times every week. She has been managing all right in school but her depression has been getting worse recently. Yesterday, she was so depressed that she thought about overdosing on her medications in combination with alcohol. She says "I started to" but then realized that there were " people who rely on me" and that she would hurt if she were to kill herself. She then called in [facility] to have herself brought to the emergency department. The patient reports that she remains depressed and admits to the suicidal thoughts. She says that she has had suicidal thoughts off and on since high school. She reports that her sleep is generally good getting about 6 hours of sleep per night. Her appetite has been undisturbed and weight has been stable. Her energy was okay until recently when she feels more tired but has been able to get to her classes. She reports poor focus and concentration. Anxiety is chronic and has panic attacks when she feels like things are out of her control. She admits to a history of restricting behaviors in order to lose weight but has not engaged in any restricting since last year. She denies ever having purged. She denies symptoms of OCD. She denies any symptoms that would be congruent with a bipolar disorder. She has engaged in self-injurious behaviors, specifically scratching with her nails on her wrists and on her sides. Physical Exam Mental Examination I (Dr. Jiménez) personally met with the patient on the day of discharge. She continues to deny thoughts to harm self or others and verbalizes a safety plan. Although she did not meet for a family session during her stay, she did have a visit with her boyfriend on the unit that went well. Her plan is to spend the day with him. She is future focussed with regards to return to classes on and she is expresses understanding of need to meet with PCP (her chosen prescriber) over spring as in [place]. She is motivated toward outpatient therapy. She tolerated increase in Lexapro and dose was increased to target of 20 mg upon discharge. Appearance: Well Groomed Eye Contact: Maintains Eye Contact Motor Behavior: Unremarkable Speech: Normal Mood: Depressed (but significant improvement over admission) Affect: Constricted Thought Process: Intact Thought Content: Intact (no SI/HI) Hallucinations: None Insight: Good Judgement: Good Vital Signs (Past 24 Hours) Last Vital Signs Temp 36.7 C 06/17/18 07:05 Pulse 76 06/17/18 07:06 Resp 16 06/17/18 07:05 BP 99/69 L 06/17/18 07:06 Pulse Ox 100 06/14/18 03:15 Principal Diagnosis Major depressive disorder, recurrent, moderate Psychiatric Data Advance Directives Advance Directives Information Provided: Yes Advance Directives: No Mental Health Advance Directive: No Advance Directives on File: No Living Will: No Power of Clinical Assistant: No Advance Directives Reason:: Declines as Mental Health Visit. Risk Factors Assessment Male: No : Yes Do You Have Access To A Gun?: No Health Problems: No Mental Health Diagnoses: Yes Substance Use Disorders: No Previous Attempt: No Family History of Suicide: No Previous Psychiatric Hospitalization: No Hopelessness: No Smoker: No Protective Factors Assessment : No Responsible for Young Children: No Employed: Yes Stable Relationships: Yes Supportive Family: Yes Discharge Data Lab Results 06/13/18 06/13/18 06/13/18 20:15 20:15 20:35 WBC 6.62 RBC 4.62 Hgb 13.1 Hct 39.2 MCV 84.8 MCH 28.4 MCHC 33.4 RDW Std Deviation 41.4 RDW Coeff of Nikki 13.4 Plt Count 377 MPV 9.4 Immature Gran % (Auto) 0.3 Neut % (Auto) 50.6 Lymph % (Auto) 39.1 [place] % (Auto) 8.2 Eos % (Auto) 1.5 Baso % (Auto) 0.3 Immature Gran # (Auto) 0.02 Neut # (Auto) 3.35 Lymph # (Auto) 2.59 [place] # (Auto) 0.54 Eos # (Auto) 0.10 Baso # (Auto) 0.02 Sodium Potassium Chloride Carbon Dioxide Anion Gap BUN Creatinine Est Cr Clr Drug Dosing Est GFR ( Amer) Est GFR (Non-Af Amer) BUN/Creatinine Ratio Glucose Calcium Total Bilirubin AST ALT Alkaline Phosphatase Total Protein Albumin Globulin Albumin/Globulin Ratio TSH HCG, Qual Urine Color Yellow Urine Appearance Cloudy H Urine pH 7.5 Ur Specific Selby 1.015 Urine Protein Negative Urine Glucose (UA) Negative Urine Ketones Negative Urine Blood 2+ H Urine Nitrite Negative Urine Bilirubin Negative Urine Urobilinogen Negative Ur Leukocyte Esterase Negative Urine WBC (Auto) 5-10 H Urine RBC (Auto) 0-4 U Hyaline Cast (Auto) 1-5 U Epithel Cells (Auto) >30 H Urine Bacteria (Auto) 1+ H Urine Yeast Not Reportable Salicylates Urine Opiates Screen Neg Ur Methadone, Qual Neg Acetaminophen Urine Barbiturates Neg Ur Phencyclidine (PCP) Neg U Amphetamin/Meth Scrn Neg MDMA (Ecstasy) Screen Neg U Benzodiazepines Scrn Neg Ur Cocaine Metabolite Neg U Marijuana (THC) Screen Neg Ethyl Alcohol mg/dL 06/13/18 06/13/18 06/13/18 20:35 20:35 20:35 WBC RBC Hgb Hct MCV MCH MCHC RDW Std Deviation RDW Coeff of Nikki Plt Count MPV Immature Gran % (Auto) Neut % (Auto) Lymph % (Auto) [place] % (Auto) Eos % (Auto) Baso % (Auto) Immature Gran # (Auto) Neut # (Auto) Lymph # (Auto) [place] # (Auto) Eos # (Auto) Baso # (Auto) Sodium 139 Potassium 3.3 L Chloride 107 Carbon Dioxide 24 Anion Gap 8.0 BUN 8 Creatinine 0.83 Est Cr Clr Drug Dosing 101.2 Est GFR ( Amer) 117.7 Est GFR (Non-Af Amer) 101.5 BUN/Creatinine Ratio 9.1 L Glucose 107 H Calcium 8.4 L Total Bilirubin 0.1 L AST 19 ALT 22 Alkaline Phosphatase 54 Total Protein 7.4 Albumin 3.7 Globulin 3.7 Albumin/Globulin Ratio 1.0 TSH 0.690 HCG, Qual Urine Color Urine Appearance Urine pH Ur Specific Selby Urine Protein Urine Glucose (UA) Urine Ketones Urine Blood Urine Nitrite Urine Bilirubin Urine Urobilinogen Ur Leukocyte Esterase Urine WBC (Auto) Urine RBC (Auto) U Hyaline Cast (Auto) U Epithel Cells (Auto) Urine Bacteria (Auto) Urine Yeast Salicylates < 1.7 L Urine Opiates Screen Ur Methadone, Qual Acetaminophen < 2 L Urine Barbiturates Ur Phencyclidine (PCP) U Amphetamin/Meth Scrn MDMA (Ecstasy) Screen U Benzodiazepines Scrn Ur Cocaine Metabolite U Marijuana (THC) Screen Ethyl Alcohol mg/dL < 3.0 06/13/18 20:35 WBC RBC Hgb Hct MCV MCH MCHC RDW Std Deviation RDW Coeff of Nikki Plt Count MPV Immature Gran % (Auto) Neut % (Auto) Lymph % (Auto) [place] % (Auto) Eos % (Auto) Baso % (Auto) Immature Gran # (Auto) Neut # (Auto) Lymph # (Auto) [place] # (Auto) Eos # (Auto) Baso # (Auto) Sodium Potassium Chloride Carbon Dioxide Anion Gap BUN Creatinine Est Cr Clr Drug Dosing Est GFR ( Amer) Est GFR (Non-Af Amer) BUN/Creatinine Ratio Glucose Calcium Total Bilirubin AST ALT Alkaline Phosphatase Total Protein Albumin Globulin Albumin/Globulin Ratio TSH HCG, Qual Negative Urine Color Urine Appearance Urine pH Ur Specific Selby Urine Protein Urine Glucose (UA) Urine Ketones Urine Blood Urine Nitrite Urine Bilirubin Urine Urobilinogen Ur Leukocyte Esterase Urine WBC (Auto) Urine RBC (Auto) U Hyaline Cast (Auto) U Epithel Cells (Auto) Urine Bacteria (Auto) Urine Yeast Salicylates Urine Opiates Screen Ur Methadone, Qual Acetaminophen Urine Barbiturates Ur Phencyclidine (PCP) U Amphetamin/Meth Scrn MDMA (Ecstasy) Screen U Benzodiazepines Scrn Ur Cocaine Metabolite U Marijuana (THC) Screen Ethyl Alcohol mg/dL Hospital Course (1) Major depressive disorder, recurrent severe without psychotic features: 06/14 - Increase Lexapro to 15 mg and move to AM - Obtain OP records from Dr. Hughes as to past med trials - Refer for OP therapy and medication management - Q 15 min checks for safety - Encourage participation in group and individual counseling - Assist the patient to explore healthy coping strategies - Explore barriers to her commitment to therapy - Family meeting if indicated - Safety planning 06/15 - Continue Lexapro 15mg daily - Willing to consider therapy referral - Encourage completion of safety plan, especially if requesting consideration for sooner discharge Post Discharge Appointments Primary Care Physician Name Of Family Doctor: Dr Nancy Hughes - [facility] Primary [facility] Time of Appointment with PCP: follow up as needed Provider Appointment Comment: [address], [place] [address] Therapist Name of Therapist: [facility] - Bethanie Aguirre Therapist's Date of Therapist Appointment: 06/20/18 Time of Therapist Appointment: 3pm - come 15min early with insurance card Therapy Appointment Comment: [address] [facility] [address] Export Sales Assistant Name of Export Sales Assistant: Lilian Rao Phone Number for Export Sales Assistant: [phone] Date of Appointment with Export Sales Assistant: 06/18/18 Time of Appointment with Export Sales Assistant: 2pm Case Management Appointment Comment: [address] [place] [address] Contact Information Discharge Discharge Address: [address] [place] [id number] Discharge Plan Discharge Items Patient Disposition: Home - Self-Care Reason For Visit: MAJOR DEPRESSIVE DISORDER Discharge Diagnosis: Major depressive disorder Condition: Good Discharge Goals: Improve disease control and Improve function Activity: Resume your previous activity Non-emergency contact: Primary Care Provider and Therapist Call non-emergency contact if: your symptoms worsen Diet: Regular Addtl Provider Instructions: SPECIAL CARE INSTRUCTIONS: 1. Follow through with your scheduled aftercare appointments. If unable to keep an appointment, please call to reschedule. 2. Take your medication only as prescribed. Medication should not be changed or stopped without the approval of your doctor. In the event of worsening symptoms or concerns about side effects, contact your doctor immediately. 3. Utilize new healthy coping skills, anger management skills, and stress management skills learned during your hospitalization. Journal feelings and process them with a support person. Identify stressors or situations that may result in relapse, deterioration or inappropriate behaviors and develop a plan to deal with those issues. 4. If your coping skills are ineffective and you are in crisis, contact your outpatient providers for direction. If unable to reach your providers, please call the CAN HELP LINE AT or go to the closest Emergency Room. 5. Avoid alcohol and un-prescribed drugs. 6. You have been provided with the Mental Health Advance Directives Pamphlet for your review. AFTERCARE APPOINTMENTS: * Please call your insurance company prior to your scheduled appointment to confirm your aftercare providers are covered. Take your insurance information to your appointments. WHO TO CALL AND WHEN: � Medical Emergencies:� For questions or emergencies related to your hospital stay, please contact the Inpatient Behavioral Health Unit at [phone]. � A peripatologist is on-call 05/12 for the Behavioral Health Unit for emergencies � At any time you feel your situation is an emergency, you may also call 911 immediately. Your Doctors Instructions noted above were prepared by provider Vero Jiménez MD. Prescriptions: New escitalopram oxalate [Lexapro] 10 mg tablet 10 mg PO DAILY Qty: 14 RF: 1 Continue norgestimate-ethinyl estradiol [Oto-El-Yxueaf] 0.18/0.215/0.25 mg-25 mcg Tablet 1 tab PO DAILY RF: 0 Discontinued escitalopram oxalate [Lexapro] 10 mg Tablet 10 mg PO DAILY RF: 0 Stand-Alone Forms: [facility] Discharge Orders: Discharge Order (Routine); Ordered 06/17/18 Ordered By: Vero Jiménez Admission Data Admit Date/Time: 06/14/18 00:54 Attending Provider: Alejandra Dye Admit Provider: Maritza López Primary Care Provider: PCP,SAADIA Service: Psychiatry Other Interventions: PSY Interdisciplinary Discharge Planning Last Done: 06/17/18 08:02 Pending Studies at Discharge: No
== END 2018-06-17 11:40 | disposition home or self-care (01) | DRG 885 ==
LOC: ED 19:40 → 3S 06-14 00:54